=== PATIENT | male | born 1975 | race Caucasian/White ===

== ENCOUNTER 2023-05-03 18:11 | Emergency (ER) | payer OTHER ==
[~2023-05-03] VITALS: Ht 182.9 cm; Wt 90.9 kg
[2023-05-03 18:22] VITALS: BP 135/72; PULSE 96; RESP 18; TEMP 98.2
[2023-05-03] MEDS ORDERED: LIDOCAINE 1% 10 ML VIAL SQ ONE (18:45)
== END 2023-05-03 19:05 ==
LOC: EMS 18:16
DX: L02.31 Cutaneous abscess of buttock (principal); Z98.890 Other specified postprocedural states; Z91.018 Allergy to other foods
CPT/HCPCS: 10060; 99282; J3490